=== PATIENT | male | born 1945 | race Caucasian/White ===

== ENCOUNTER 2019-05-22 21:44 | Observation (INO) | payer OTHER ==
[~2019-05-22] VITALS: Ht 167.6 cm; Wt 75.0 kg
[~2019-05-22 21:44] MED LIST: AMLODIPINE PO; ASPI-481 PO; BENAZEPRIL PO; GLIPIZIDE PO
[2019-05-22 21:45] VITALS: Ht 167.6 cm; Wt 75.0 kg
[2019-05-22] MEDS ORDERED: SOD CHLORIDE 0.9% 1,000 ML IV STA (22:14)
[2019-05-22] MEDS ORDERED: ONDANSETRON 4 MG INJ IV STA (22:14)
[2019-05-22] MEDS ORDERED: DEXAMETHASONE 10 MG/ML 1 ML INJ IV ONE (23:00)
[2019-05-22] MEDS ORDERED: LIDOCAINE/MYLANTA 40 ML BTL PO ONE (23:00)
[2019-05-23] VITALS (12 sets, daily range): BP systolic 130–179; BP diastolic 61–95; PULSE 83–101; RESP 15–21; BMI 26.7
[2019-05-23] MEDS ORDERED: ACETAMINOPHEN 325 MG TAB PO PRN (01:00)
[2019-05-23] MEDS ORDERED: ONDANSETRON 4 MG INJ IV PRN ×2 (01:00→02:00)
--- NOTE | 2019-05-23 01:44 | QN ---
Documentation Comment H&P dict a/p 1. retained esophageal foriegn body vs stricture vs ??, swallow study, gi DALE Rey MD May 23, 2019 01:44
[2019-05-23] MEDS ORDERED: morphine 4 MG/ML VIAL IV PRN (02:00)
[2019-05-23] MEDS ORDERED: CLONIDINE 0.2 MG/24 HR PATCH TRANSDERM ONE (02:00)
[2019-05-23] MEDS ORDERED: hydrALAzine 20 MG INJ IV PRN (02:00)
[2019-05-23] MEDS: ACCU-CHEK XX SCH (02:00)
[2019-05-23] MEDS ORDERED: ACETAMINOPHEN 650 MG SUPP PR PRN (02:00)
[2019-05-23] MEDS ORDERED: GLUCAGON 1 MG INJ IM PRN (02:30)
[2019-05-23] MEDS ORDERED: GLUCOSE GEL 15 GRAM TUBE PO PRN ×2 (02:30)
[2019-05-23] MEDS ORDERED: DEXTROSE 50% 50 ML SYRINGE IV PRN ×2 (02:30)
[2019-05-23] MEDS ORDERED: GLUCOSE GEL 15 GRAM TUBE BUCCAL PRN (02:30)
[2019-05-23] MEDS: SOD CHLORIDE 0.9% 1,000 ML IV SCH ×2 (02:41→11:48)
--- NOTE | 2019-05-23 04:35 | ERD ---
ER Documentation Chief Complaint Chief Complaint CHOKING ON CHICKEN; VOMITED; AIRWAY PATENT; A&OX4 HPI 73-year-old male otherwise healthy presenting to the emergency department by family with concerns for choking episode which occurred just prior to arrival. The patient was eating chicken and began to have a coughing spell followed by multiple episodes of nonbloody nonbilious emesis. Since then, he has been unable to swallow food or drinks because he spits it back up. He feels there is chicken stuck in the right side of his throat. He denies any shortness of breath. He tried no medication for relief of symptoms. He reports similar episodes in the past. ROS All systems reviewed and are negative except as per history of present illness. Medications Home Meds Reported Medications [Glipizide] No Conflict Check, PO DAILY 07/22/13 Aspirin (Baby Aspirin) 81 Mg Tab.chew, 81 MG PO DAILY 07/22/13 [Benazepril] No Conflict Check, PO DAILY 07/22/13 [Amlodipine] No Conflict Check, PO DAILY 07/22/13 Allergies Allergies: Coded Allergies: No Known Allergy (Unverified , 02/18/14) PMhx/Soc History of Surgery: Yes Anesthesia Reaction: No Hx Neurological Disorder: No Hx Respiratory Disorders: No Hx Cardiac Disorders: Yes (HTN) Hx Psychiatric Problems: No Hx Miscellaneous Medical Probl: No Hx Alcohol Use: No (per patient he drinks 3 beers per day) Hx Substance Use: Yes (drinks alcohol almost every day, last date used 05/22/19) Hx Tobacco Use: No Smoking Status: Never smoker FmHx Family History: No diabetes Physical Exam Vitals Vital Signs Date Temp Pulse Resp B/P (MAP) Pulse Ox O2 O2 Flow FiO2 Time Delivery Rate 05/23/19 98.5 82 20 157/71 98 Room Air 00:10 (99) 05/22/19 98.7 98 19 185/71 97 21:45 (109) Physical Exam Const: No acute distress Head: Atraumatic Eyes: Normal Conjunctiva ENT: Normal External Ears, Nose and Mouth. No obvious foreign body noted the posterior pharynx. Uvula is midline. Neck: Full range of motion. No meningismus. Resp: Clear to auscultation bilaterally Cardio: Regular rate and rhythm, no murmurs Abd: Soft, non tender, non distended. Normal bowel sounds Skin: No petechiae or rashes Back: No midline or flank tenderness Ext: No cyanosis, or edema Neur: Awake and alert Psych: Normal Mood and Affect Result Diagram: 05/22/19222605/22/192226 Results 24 hrs Laboratory Tests Test 05/22/19 22:27 White Blood Count 8.0 10^3/ul Red Blood Count 4.37 10^6/ul Hemoglobin 14.3 g/dl Hematocrit 39.2 % Mean Corpuscular Volume 89.7 fl Mean Corpuscular Hemoglobin 32.7 pg Mean Corpuscular Hemoglobin Concent 36.5 g/dl Red Cell Distribution Width 11.1 % Platelet Count 180 10^3/UL Mean Platelet Volume 10.2 fl Immature Granulocytes % 0.400 % Neutrophils % 56.8 % Lymphocytes % 35.1 % Monocytes % 6.9 % Eosinophils % 0.4 % Basophils % 0.4 % Nucleated Red Blood Cells % 0.0 /100WBC Immature Granulocytes # 0.030 10^3/ul Neutrophils # 4.5 10^3/ul Lymphocytes # 2.8 10^3/ul Monocytes # 0.6 10^3/ul Eosinophils # 0.0 10^3/ul Basophils # 0.0 10^3/ul Nucleated Red Blood Cells # 0.0 10^3/ul Prothrombin Time 13.4 Sec Prothrombin Time Ratio 1.0 INR International Normalized Ratio 1.01 Activated Partial Thromboplast Time 27.0 Sec Sodium Level 138 mmol/L Potassium Level 3.8 mmol/L Chloride Level 102 mmol/L Carbon Dioxide Level 24 mmol/L Anion Gap 12 Blood Urea Nitrogen 10 mg/dl Creatinine 0.76 mg/dl Est Glomerular Filtrat Rate mL/min mL/min Glucose Level 205 mg/dl Calcium Level 9.3 mg/dl Total Bilirubin 0.8 mg/dl Direct Bilirubin 0.00 mg/dl Indirect Bilirubin 0.8 mg/dl Aspartate Amino Transf (AST/SGOT) 25 IU/L Alanine Aminotransferase (ALT/SGPT) 32 IU/L Alkaline Phosphatase 74 IU/L Total Protein 7.2 g/dl Albumin 4.2 g/dl Globulin 3.00 g/dl Albumin/Globulin Ratio 1.40 Current Medications Medications Dose Sig/Myriam Start Time Status Last (Trade) Ordered Route PRN Stop Time Admin Dose Reason Admin Sodium 1,000 ml @ Q1H STAT 05/22/19 DC 05/22/19 Chloride 1,000 mls/hr IV 22:14 22:33 05/22/19 23:13 Ondansetron 4 mg ONCE STAT 05/22/19 DC 05/22/19 HCl (Zofran IV 22:14 22:33 Inj) 05/22/19 22:18 40 ml ONCE ONCE 05/22/19 DC 05/22/19 Miscellaneous PO 23:00 23:02 Medication 05/22/19 23:01 (Gi Cocktail (2)) 10 mg ONCE ONCE 05/22/19 DC 05/22/19 Dexamethasone IV 23:00 23:02 (Decadron) 05/22/19 23:01 [place] [id number] Radiology Main Line: [phone] DIAGNOSTIC IMAGING REPORT Patient: CONCETTA FLORES : 1945 Age: 73 Sex: M MR #: [id number] DOS: 05/22/19 0000 Ordering MD: ALEXEY RUSSELL PA-C Location: [facility] Room/Bed: PROCEDURE: CT soft tissue neck without contrast CLINICAL INDICATION: Ingested foreign body. The patient feels a chicken bone in throat on the right side TECHNIQUE: A CT of the neck was performed utilizing axial sections from the from the thoracic inlet through the skull base without contrast. Coronal and sagittal images were also reformatted. No intravenous contrast was administered. DICOM images are available. One or more of the following dose reduction techniques were used: Automated exposure control, adjustment of the mA and/or kV according to patient size, use of iterative reconstruction technique. The exam CTDI vol = 9.83 mGy and DLP = 258.65 mGy-cm. COMPARISON: None available FINDINGS: Visualized intracranial structures and skull base: The included portions of the cerebral hemispheres and posterior fossa are unremarkable with the fourth ventricle midline. The mastoid air cells and included paranasal sinuses are clear. Nasopharynx, oropharynx and tongue base: The tonsils are symmetric. The parapharyngeal fat planes are preserved bilaterally. No nasopharyngeal mass is present. The tongue base is unremarkable. Some dental amalgam artifact limits fine evaluation of these regions. Parotid and physical therapy teacher spaces: The glands are normal in size and homogeneous in attenuation without mass or inflammation. The muscles of mastication and temporomandibular joints are normal bilaterally. Carotid spaces: No evidence of mass lesion. The lymph nodes are normal in size bilaterally without evidence of adenopathy. Atherosclerotic calcification of the carotid systems is mild to moderate bilaterally. Submandibular and submental spaces: The glands and lymph nodes are normal. There is no evidence of calcification. The sublingual space is unremarkable. Posterior triangles: Unremarkable bilaterally. Larynx and infraglottic airway: The vallecula, epiglottis, aryepiglottic folds, vocal cords and piriform sinuses are unremarkable. No intrinsic tracheal abnormality is demonstrated. There is no evidence of foreign body Visceral space: The thyroid gland is normal in size. There is no evidence of mass or adenopathy. The cervical esophagus is unremarkable without foreign body. The mid-esophagus within the thorax is mildly distended with gas but shows no evidence of a chicken bone. Supraclavicular fossae: No evidence of adenopathy or mass lesion. Visualized thorax: Slightly dilated middle esophagus with some debris but no evidence of a chicken bone foreign body. Cervical spine: No evidence of fracture, lytic or blastic lesion. Degenerative enthesopathy of the cervical spine is present with probable diffuse idiopathic skeletal hyperostosis of the thoracic spine RPTAT:HJJR IMPRESSION: 1. There is no evidence of radiopaque foreign body, the chicken bone mentioned in the history is not visualized. 2. Mild distension of the visualized esophagus within the thorax below the thoracic inlet with some debris, findings of uncertain significance. 3. Atherosclerotic calcification of the carotid systems. 4. Probable diffuse idiopathic skeletal hyperostosis of the visualized thoracic spine Physician Genie Date Time Electronically viewed and signed by Physician Genie on 05/22/2019 23:28 JR/ CC: ALEXEY RUSSELL PA-C [id number] Procedures/MDM 73-year-old male presents the emergency department with signs and symptoms consistent with esophageal stricture versus esophageal foreign body. Patient failed multiple p.o. challenges in the department and therefore I consulted the attending ED physician, Dr. Alexey Dove who further facilitated admission for this patient for GI consultation and possible upper endoscopy. Patient remained hemodynamically stable under my direct care with no new complaints. Departure Diagnosis: Primary Impression: Esophagus, foreign body Encounter type: initial encounter Qualified Codes: T18.108A - Unspecified foreign body in esophagus causing other injury, initial encounter Condition: ALEXEY Burks PA-C May 23, 2019 04:35
[2019-05-23] MEDS: INSULIN ASPART [NOVOLOG] 3 ML PEN SC SCH ×5 (05:43→20:58)
--- NOTE | 2019-05-23 06:10 | HP ---
DATE OF ADMISSION: 05/23/2019 CHIEF COMPLAINT: Dysphagia. HISTORY OF PRESENT ILLNESS: The patient presents to the emergency room at [facility] with d ysphagia. He states he was in his usual state of health and had some chicken at approximately 9:00 a t night. He then felt as if something got stuck and was unable to swallow. He expectorated much whi kiko material, but did not clear the perceived obstruction. Since that time, he has not been able to take any water. He was seen here in the ER, was able to take some of a GI cocktail, but not wash an y down with any water without having regurgitation. PAST MEDICAL HISTORY: Significant for hypertension. MEDICATIONS: As an outpatient include: 1. Aspirin 81 mg daily. 2. Norvasc. 3. Benazepril. 4. Glipizide. ALLERGIES: NO KNOWN DRUG ALLERGIES. SOCIAL HISTORY: The patient lives at home in [place]. Works as a cook. Denies tobacco or i llicit drug use. Occasional alcohol. FAMILY HISTORY: Noncontributory. REVIEW OF SYSTEMS: Five systems reviewed and found not to be revealing. PHYSICAL EXAMINATION: VITAL SIGNS: Blood pressure is 157/71, pulse rate 82, respirations 20, temperature is 98.5. GENERAL: A pleasant man in no acute distress. Alert and oriented x3. HEENT: Normocephalic, atraumatic without evident scleral icterus, perioral cyanosis. Mucous membran es are moist. NECK: Soft and supple without masses. No evidence of jugular venous distention or carotid bruits. CHEST: Clear to auscultation and percussion bilaterally. HEART: Regular rate and rhythm, S1-S2, no added sounds. ABDOMEN: Soft, nontender, nondistended without palpable hepatosplenomegaly. EXTREMITIES: Without clubbing, cyanosis or edema. SKIN: Without rashes. NEUROLOGIC: Grossly intact. LABORATORY STUDIES: Reveal hemoglobin 14.3 g/dL, white count of 8000, platelets of 180,000. INR is 1.0. Sodium 138, potassium 3.8, chloride 102, bicarbonate 24, BUN 10, creatinine 0.76, glucose 205. Liver function tests are unremarkable. CT scan of the neck was performed, which reveals mild distention of the visualized esophagus below th e thoracic inlet of uncertain significance. ASSESSMENT AND PLAN: 1. Gastrointestinal. Possible esophageal retained foreign body. Consider also stricture or spasm a chalasia. We will plan to obtain GI consultation. 2. Send for video swallow study. 3. Consider EGD. 4. Continue n.p.o. at this time. Dictated By: DALE CHENG MD RER/NTS Conf#: [id number] DID#: [id number]
--- NOTE | 2019-05-23 10:12 | CONS ---
Assessment/Plan Assessment/Plan Hospital Course (Demo Recall) Summary Assessment and Plan: Assessment: Dysphagia -Foreign body versus stricture versus dysmotility -CT soft tissue neck without contrast shows no evidence of radial opaque foreign body, the chicken bone mentioned in the history is not visualized. Mild distention of the visualized esophagus within the thorax below the thorax inlet with some debris findings of uncertain significance Hypertension Diabetes mellitus Plan: Urgent EGD today Endoscopy - risks/benefits/alternatives/indications of procedure and sedation/anesthesia discussed with patient who states understanding and gives informed consent to proceed. Cancel video swallow for now Patient seen in collaboration with Dr. Magdaleno CC: NOBLE MAGDALENO MD ; Consultation Date/Type/Reason Admit Date/Time May 23, 2019 at 00:56 Date of Consultation: May 23, 2019 Type of Consult GI Reason for Consultation Dysphagia Date/Time of Note DATE: 05/23/19 TIME: 09:52 Hx of Present Illness This is a 73-year-old male with PMH of DM, HTN who presented to the emergency department earlier this morning complains of dysphagia after eating chicken last night. Barely the patient was eating chicken about 9:00 PM yesterday he began to cough and have episodes of emesis he was able to get some chicken up but does not all of it and continues to complain of dysphasia unable to swallow food or drinks. Scented to the ED for further evaluation. Patient states he has had symptoms of dysphagia for the past 10 years usually occurs about once per week worse with solids versus liquids. He has never had an upper endoscopy. Review of Systems: A 12 system, review was conducted and is negative except as noted in the HPI or here. Past Medical History Home Meds Reported Medications [Glipizide] No Conflict Check, PO DAILY 07/22/13 Aspirin (Baby Aspirin) 81 Mg Tab.chew, 81 MG PO DAILY 07/22/13 [Benazepril] No Conflict Check, PO DAILY 07/22/13 [Amlodipine] No Conflict Check, PO DAILY 07/22/13 Medications Current Medications Ondansetron HCl (Zofran Inj) 4 mg BRIDGE ORDER PRN IV NAUSEA/VOMITING Last administered on 05/23/19at 08:18; Admin Dose 4 MG; Start 05/23/19 at 01:00; Stop 05/24/19 at 00:59 Acetaminophen (Tylenol Tab) 650 mg ER BRIDGE PRN PO .MILD PAIN 1-3 OR TEMP; Start 05/23/19 at 01:00; Stop 05/24/19 at 00:59 Sodium Chloride 1,000 ml @ 100 mls/hr Q10H IV Last administered on 05/23/19at 02:41; Admin Dose 100 MLS/HR; Start 05/23/19 at 02:00 Hydralazine HCl (Apresoline) 10 mg Q4H PRN IV sbp>160 Last administered on 05/23/19at 08:19; Admin Dose 10 MG; Start 05/23/19 at 02:00 Acetaminophen (Tylenol Supp) 650 mg Q4H PRN NE pain/fever; Start 05/23/19 at 02:00 Morphine Sulfate (morphine) 4 mg Q4H PRN IV pain; Start 05/23/19 at 02:00 Ondansetron HCl (Zofran Inj) 4 mg Q4H PRN IV nausea; Start 05/23/19 at 02:00 Diagnostic Test (Pha) (Accu-Chek) 1 ea 02 XX ; Start 05/23/19 at 02:00 Insulin Aspart (Novolog Insulin Pen) NOVOLOG *MODERATE* ALGORI... Q4 SC Last administered on 05/23/19at 08:17; Admin Dose 4 UNIT; Start 05/23/19 at 05:00 Miscellaneous Information 1 ea NOTE XX ; Start 05/23/19 at 02:30 Glucose (Glutose) 15 gm Q15M PRN PO DECREASED GLUCOSE; Start 05/23/19 at 02:30 Glucose (Glutose) 22.5 gm Q15M PRN PO DECREASED GLUCOSE; Start 05/23/19 at 02:30 Dextrose (D50w Syringe) 25 ml Q15M PRN IV DECREASED GLUCOSE; Start 05/23/19 at 02:30 Dextrose (D50w Syringe) 50 ml Q15M PRN IV DECREASED GLUCOSE; Start 05/23/19 at 02:30 Glucagon (Glucagen) 1 mg Q15M PRN IM DECREASED GLUCOSE; Start 05/23/19 at 02:30 Glucose (Glutose) 15 gm Q15M PRN BUCCAL DECREASED GLUCOSE; Start 05/23/19 at 02:30 Allergies: Coded Allergies: No Known Allergy (Unverified , 02/18/14) Social History Smoking Status: Never smoker Exam/Review of Systems Exam Vitals Vital Signs Date Temp Pulse Resp B/P (MAP) Pulse Ox O2 O2 Flow FiO2 Time Delivery Rate 05/23/19 91 18 179/82 Room Air 08:06 (114) 05/23/19 98.1 97 07:30 Intake and Output 05/22/19 05/22/19 05/23/19 1414:59 22:59 06:59 IntakeIntake Total 200 ml BalanceBalance 200 ml Exam PHYSICAL EXAMINATION: GENERAL: Well developed, well nourished, alert & oriented x 3, in no acute distress SKIN: No lesions HEAD: Normocephalic, atraumatic, no tenderness. EYES: Pupils equal reactive to light and accommodation, no discharge. EARS/NOSE AND THROAT: Ears normal, nose normal. NECK: Supple, no masses, CHEST: Inspection within normal limits. CARDIOVASCULAR: Heart: Regular rate and rhythm RESPIRATORY: Lungs clear to auscultation GASTROINTESTINAL AND LIVER: Abdomen: Soft, non tenderness, non-distended, no hernias, no masses, no organomegaly, no ascites, no guarding, no rebound tenderness, normoactive bowel sounds. Rectal: Deferred. EXTREMITIES: No cyanosis, clubbing or edema. Results Result Diagram: 05/22/19222605/22/192226 Results 24hrs Laboratory Tests Test 05/22/19 22:27 05/23/19 05:29 05/23/19 08:10 White Blood Count 8.0 Red Blood Count 4.37 L Hemoglobin 14.3 Hematocrit 39.2 L Mean Corpuscular Volume 89.7 Mean Corpuscular Hemoglobin 32.7 Mean Corpuscular Hemoglobin Concent 36.5 Red Cell Distribution Width 11.1 L Platelet Count 180 Mean Platelet Volume 10.2 Immature Granulocytes % 0.400 Neutrophils % 56.8 Lymphocytes % 35.1 Monocytes % 6.9 Eosinophils % 0.4 Basophils % 0.4 Nucleated Red Blood Cells % 0.0 Immature Granulocytes # 0.030 Neutrophils # 4.5 Lymphocytes # 2.8 Monocytes # 0.6 Eosinophils # 0.0 Basophils # 0.0 Nucleated Red Blood Cells # 0.0 Prothrombin Time 13.4 Prothrombin Time Ratio 1.0 INR International Normalized Ratio 1.01 Activated Partial Thromboplast Time 27.0 Sodium Level 138 Potassium Level 3.8 Chloride Level 102 Carbon Dioxide Level 24 Anion Gap 12 Blood Urea Nitrogen 10 Creatinine 0.76 Est Glomerular Filtrat Rate mL/min Glucose Level 205 Calcium Level 9.3 Total Bilirubin 0.8 Direct Bilirubin 0.00 Indirect Bilirubin 0.8 Aspartate Amino Transf (AST/SGOT) 25 Alanine Aminotransferase (ALT/SGPT) 32 Alkaline Phosphatase 74 Total Protein 7.2 Albumin 4.2 Globulin 3.00 Albumin/Globulin Ratio 1.40 Bedside Glucose 214 204 Medications Medication Current Medications Ondansetron HCl (Zofran Inj) 4 mg BRIDGE ORDER PRN IV NAUSEA/VOMITING Last administered on 05/23/19at 08:18; Admin Dose 4 MG; Start 05/23/19 at 01:00; Stop 05/24/19 at 00:59 Acetaminophen (Tylenol Tab) 650 mg ER BRIDGE PRN PO .MILD PAIN 1-3 OR TEMP; Start 05/23/19 at 01:00; Stop 05/24/19 at 00:59 Sodium Chloride 1,000 ml @ 100 mls/hr Q10H IV Last administered on 05/23/19at 02:41; Admin Dose 100 MLS/HR; Start 05/23/19 at 02:00 Hydralazine HCl (Apresoline) 10 mg Q4H PRN IV sbp>160 Last administered on 05/23/19at 08:19; Admin Dose 10 MG; Start 05/23/19 at 02:00 Acetaminophen (Tylenol Supp) 650 mg Q4H PRN NE pain/fever; Start 05/23/19 at 02:00 Morphine Sulfate (morphine) 4 mg Q4H PRN IV pain; Start 05/23/19 at 02:00 Ondansetron HCl (Zofran Inj) 4 mg Q4H PRN IV nausea; Start 05/23/19 at 02:00 Diagnostic Test (Pha) (Accu-Chek) 1 ea 02 XX ; Start 05/23/19 at 02:00 Insulin Aspart (Novolog Insulin Pen) NOVOLOG *MODERATE* ALGORI... Q4 SC Last administered on 05/23/19at 08:17; Admin Dose 4 UNIT; Start 05/23/19 at 05:00 Miscellaneous Information 1 ea NOTE XX ; Start 05/23/19 at 02:30 Glucose (Glutose) 15 gm Q15M PRN PO DECREASED GLUCOSE; Start 05/23/19 at 02:30 Glucose (Glutose) 22.5 gm Q15M PRN PO DECREASED GLUCOSE; Start 05/23/19 at 02:30 Dextrose (D50w Syringe) 25 ml Q15M PRN IV DECREASED GLUCOSE; Start 05/23/19 at 02:30 Dextrose (D50w Syringe) 50 ml Q15M PRN IV DECREASED GLUCOSE; Start 05/23/19 at 02:30 Glucagon (Glucagen) 1 mg Q15M PRN IM DECREASED GLUCOSE; Start 05/23/19 at 02:30 Glucose (Glutose) 15 gm Q15M PRN BUCCAL DECREASED GLUCOSE; Start 05/23/19 at 02:30 ANA COX May 23, 2019 10:11
--- NOTE | 2019-05-23 10:20 | PDOCDIS ---
Discharge Instructions CONDITION [id number] Patient Condition: [id number] Good HOME CARE INSTRUCTIONS: [id number] Diet Instructions: [id number] Activity Restrictions: [id number] No Restrictions FOLLOW UP/APPOINTMENTS Follow-up Plan pcp 1 week SAUL MOY MD May 23, 2019 10:20
--- NOTE | 2019-05-23 11:47 | PREAC ---
Date/Time of Note Date/Time of Note DATE: 05/23/19 TIME: 11:46 Anesthesia Eval and Record Evaluation Time Pre-Procedure Interview DATE: 05/23/19 TIME: 11:46 Age 73 Sex male NPO: 8 hrs Preoperative diagnosis dysphagia Planned procedure EGD possible biopsy Past Medical History Past Medical History: Includes Cardio: HTN, Dyslipidemia Endo: Diabetes Surgery & Anesthesia Issues No known issue Meds Anticoagulation: No Beta Errol within 24 hr: No Reason Beta Errol not given: Pt. not on B-Errol Reported Medications [Glipizide] No Conflict Check, PO DAILY 07/22/13 Aspirin (Baby Aspirin) 81 Mg Tab.chew, 81 MG PO DAILY 07/22/13 [Benazepril] No Conflict Check, PO DAILY 07/22/13 [Amlodipine] No Conflict Check, PO DAILY 07/22/13 Current Medications Ondansetron HCl (Zofran Inj) 4 mg BRIDGE ORDER PRN IV NAUSEA/VOMITING Last administered on 05/23/19at 08:18; Admin Dose 4 MG; Start 05/23/19 at 01:00; Stop 05/24/19 at 00:59 Acetaminophen (Tylenol Tab) 650 mg ER BRIDGE PRN PO .MILD PAIN 1-3 OR TEMP; Start 05/23/19 at 01:00; Stop 05/24/19 at 00:59 Sodium Chloride 1,000 ml @ 100 mls/hr Q10H IV Last administered on 05/23/19at 02:41; Admin Dose 100 MLS/HR; Start 05/23/19 at 02:00 Hydralazine HCl (Apresoline) 10 mg Q4H PRN IV sbp>160 Last administered on 05/23/19at 08:19; Admin Dose 10 MG; Start 05/23/19 at 02:00 Acetaminophen (Tylenol Supp) 650 mg Q4H PRN RI pain/fever; Start 05/23/19 at 02:00 Morphine Sulfate (morphine) 4 mg Q4H PRN IV pain; Start 05/23/19 at 02:00 Ondansetron HCl (Zofran Inj) 4 mg Q4H PRN IV nausea; Start 05/23/19 at 02:00 Diagnostic Test (Pha) (Accu-Chek) 1 ea 02 XX ; Start 05/23/19 at 02:00 Insulin Aspart (Novolog Insulin Pen) NOVOLOG *MODERATE* ALGORI... Q4 SC Last administered on 05/23/19at 08:17; Admin Dose 4 UNIT; Start 05/23/19 at 05:00 Miscellaneous Information 1 ea NOTE XX ; Start 05/23/19 at 02:30 Glucose (Glutose) 15 gm Q15M PRN PO DECREASED GLUCOSE; Start 05/23/19 at 02:30 Glucose (Glutose) 22.5 gm Q15M PRN PO DECREASED GLUCOSE; Start 05/23/19 at 02:30 Dextrose (D50w Syringe) 25 ml Q15M PRN IV DECREASED GLUCOSE; Start 05/23/19 at 02:30 Dextrose (D50w Syringe) 50 ml Q15M PRN IV DECREASED GLUCOSE; Start 05/23/19 at 02:30 Glucagon (Glucagen) 1 mg Q15M PRN IM DECREASED GLUCOSE; Start 05/23/19 at 02:30 Glucose (Glutose) 15 gm Q15M PRN BUCCAL DECREASED GLUCOSE; Start 05/23/19 at 02:30 Meds reviewed: Yes Allergies Coded Allergies: No Known Allergy (Unverified , 02/18/14) Allergies Reviewed: Yes Labs/Studies Labs Reviewed: Reviewed by anesthesiologist Result Diagram: 05/22/19222605/22/192226 Laboratory Tests 05/22/19 22:27 test: N/A Pre-procedure Exam Last vitals Vital Signs Date Temp Pulse Resp B/P (MAP) Pulse Ox O2 O2 Flow FiO2 Time Delivery Rate 05/23/19 99 158/79 10:37 (105) 05/23/19 18 Room Air 08:06 05/23/19 98.1 97 07:30 Airway: Adequate mouth opening, Adequate thyromental dist Mallampati: Mallampati II Teeth: Normal Lung: Normal Heart: Normal ASA Physical Status ASA physical status: 3 Emergency: None Planned Anesthetic General/MAC: MAC Planned Pain Management Parenteral pain med, Local by surgeon Pre-operative Attestations Prior to commencing anesthesia and surgery, the patient was re-evaluated, there was verification of: *The patient's identity *The results of appropriate recent lab work and preoperative vital signs *The above evaluation not changing prior to induction *Anesthetic plan, risk benefits, alternative and complications discussed with patient/family; questions answered; patient/family understands, accepts and wishes to proceed. SHREYA OSMAN May 23, 2019 11:47
--- NOTE | 2019-05-23 13:14 | PREAC ---
Date/Time of Note Date/Time of Note DATE: 05/23/19 TIME: 13:13 Anesthesia Eval and Record Evaluation Time Pre-Procedure Interview DATE: 05/23/19 TIME: 13:13 Age 73 Sex male NPO: 8 hrs Preoperative diagnosis dysphagia Planned procedure EGD Past Medical History Past Medical History: Includes Cardio: HTN Endo: Diabetes Surgery & Anesthesia Issues No known issue Meds Anticoagulation: No Beta Errol within 24 hr: No Reason Beta Errol not given: Pt. not on B-Errol Reported Medications [Glipizide] No Conflict Check, PO DAILY 07/22/13 Aspirin (Baby Aspirin) 81 Mg Tab.chew, 81 MG PO DAILY 07/22/13 [Benazepril] No Conflict Check, PO DAILY 07/22/13 [Amlodipine] No Conflict Check, PO DAILY 07/22/13 Current Medications Ondansetron HCl (Zofran Inj) 4 mg BRIDGE ORDER PRN IV NAUSEA/VOMITING Last administered on 05/23/19at 08:18; Admin Dose 4 MG; Start 05/23/19 at 01:00; Stop 05/24/19 at 00:59 Acetaminophen (Tylenol Tab) 650 mg ER BRIDGE PRN PO .MILD PAIN 1-3 OR TEMP; Start 05/23/19 at 01:00; Stop 05/24/19 at 00:59 Sodium Chloride 1,000 ml @ 100 mls/hr Q10H IV Last administered on 05/23/19at 11:48; Admin Dose 100 MLS/HR; Start 05/23/19 at 02:00 Hydralazine HCl (Apresoline) 10 mg Q4H PRN IV sbp>160 Last administered on 05/23/19at 08:19; Admin Dose 10 MG; Start 05/23/19 at 02:00 Acetaminophen (Tylenol Supp) 650 mg Q4H PRN [place] pain/fever; Start 05/23/19 at 02:00 Morphine Sulfate (morphine) 4 mg Q4H PRN IV pain; Start 05/23/19 at 02:00 Ondansetron HCl (Zofran Inj) 4 mg Q4H PRN IV nausea; Start 05/23/19 at 02:00 Diagnostic Test (Pha) (Accu-Chek) 1 ea 02 XX ; Start 05/23/19 at 02:00 Insulin Aspart (Novolog Insulin Pen) NOVOLOG *MODERATE* ALGORI... Q4 SC Last administered on 05/23/19at 08:17; Admin Dose 4 UNIT; Start 05/23/19 at 05:00 Miscellaneous Information 1 ea NOTE XX ; Start 05/23/19 at 02:30 Glucose (Glutose) 15 gm Q15M PRN PO DECREASED GLUCOSE; Start 05/23/19 at 02:30 Glucose (Glutose) 22.5 gm Q15M PRN PO DECREASED GLUCOSE; Start 05/23/19 at 02:30 Dextrose (D50w Syringe) 25 ml Q15M PRN IV DECREASED GLUCOSE; Start 05/23/19 at 02:30 Dextrose (D50w Syringe) 50 ml Q15M PRN IV DECREASED GLUCOSE; Start 05/23/19 at 02:30 Glucagon (Glucagen) 1 mg Q15M PRN IM DECREASED GLUCOSE; Start 05/23/19 at 02:30 Glucose (Glutose) 15 gm Q15M PRN BUCCAL DECREASED GLUCOSE; Start 05/23/19 at 02:30 Meds reviewed: Yes Allergies Coded Allergies: No Known Allergy (Unverified , 02/18/14) Allergies Reviewed: Yes Labs/Studies Labs Reviewed: Reviewed by anesthesiologist Result Diagram: 05/22/19222605/22/192226 Laboratory Tests 05/22/19 22:27 test: N/A Pre-procedure Exam Last vitals Vital Signs Date Temp Pulse Resp B/P (MAP) Pulse Ox O2 O2 Flow FiO2 Time Delivery Rate 05/23/19 99 158/79 10:37 (105) 05/23/19 18 Room Air 08:06 05/23/19 98.1 97 07:30 Airway: Adequate mouth opening, Adequate thyromental dist Mallampati: Mallampati II Teeth: Normal Lung: Normal Heart: Normal ASA Physical Status ASA physical status: 2 Emergency: None Pre-operative Attestations Prior to commencing anesthesia and surgery, the patient was re-evaluated, there was verification of: *The patient's identity *The results of appropriate recent lab work and preoperative vital signs *The above evaluation not changing prior to induction *Anesthetic plan, risk benefits, alternative and complications discussed with patient/family; questions answered; patient/family understands, accepts and wishes to proceed. ALYSE CARO DO May 23, 2019 13:14
[2019-05-23] MEDS ORDERED: LIDOCAINE 4% SOLUTION 50 ML BTL ONE (13:16)
[2019-05-23] MEDS ORDERED: LIDOCAINE 2% (SDV) 5 ML INJ ONE (13:16)
[2019-05-23] MEDS ORDERED: MIDAZOLAM 1 MG/ML 2 ML INJ ONE (13:17)
--- NOTE | 2019-05-23 13:54 | PAC ---
Date/Time of Note Date/Time of Note DATE: 05/23/19 TIME: 13:53 Post-Anesthesia Notes Post-Anesthesia Note Last documented vital signs Vital Signs Date Temp Pulse Resp B/P (MAP) Pulse Ox O2 O2 Flow FiO2 Time Delivery Rate 05/23/19 98 70 129/76 99 1350 05/23/19 18 Room Air 08:06 05/23/19 98.1 97 07:30 Activity: WNL Respiratory function: WNL Cardiovascular function: WNL Mental status: Baseline Pain reasonably controlled: Yes Hydration appropriate: Yes Nausea/Vomiting absent: Yes ALYSE CARO DO May 23, 2019 13:54
[2019-05-23] MEDS ORDERED: PROPOFOL 200 MG INJ ONE (13:55)
[2019-05-23] MEDS ORDERED: METOCLOPRAMIDE 10 MG INJ IV SCH (14:00)
[2019-05-23] MEDS: PANTOPRAZOLE (EC) 40 MG TAB PO SCH (17:46)
[2019-05-23] MEDS: METOCLOPRAMIDE 10 MG INJ IV SCH (20:54)
[2019-05-24] MEDS: SOD CHLORIDE 0.9% 1,000 ML IV SCH ×2 (00:30→08:00)
[2019-05-24] MEDS: ACCU-CHEK XX SCH (02:00)
[2019-05-24 02:04] VITALS: BP 139/63; PULSE 68; RESP 19
[2019-05-24] MEDS: INSULIN ASPART [NOVOLOG] 3 ML PEN SC SCH ×4 (02:48→12:50)
[2019-05-24] MEDS: METOCLOPRAMIDE 10 MG INJ IV SCH ×2 (02:52→09:14)
[2019-05-24] MEDS: PANTOPRAZOLE (EC) 40 MG TAB PO SCH (05:30)
[2019-05-24 07:26] VITALS: BP 139/67; PULSE 66; RESP 20
--- NOTE | 2019-05-24 10:51 | PN ---
Date/Time of Note Date/Time of Note DATE: 05/24/19 TIME: 10:48 Assessment/Plan VTE Prophylaxis Risk score (from Nsg)>0 risk: 2 SCD applied (from Ns): No SCD contraindicated: low risk/ambulating Pharmacological prophylaxis: heparin Lines/Catheters IV Catheter Type (from Nrsg): Peripheral IV Urinary Cath still in place: No Assessment/Plan Assessment/Plan Assessment: Dysphagia -Foreign body versus stricture versus dysmotility -CT soft tissue neck without contrast shows no evidence of radial opaque foreign body, the chicken bone mentioned in the history is not visualized. 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 Magdaleno Subjective: Patient is doing well. He denies abdominal pain, nausea or vomiting. He is tolerating diet well. Results of EGD discussed with the patient. Patient verbalized understanding. From GI standpoint patient is adequate for outpatient management. PHYSICAL EXAMINATION: GENERAL: Well developed, well nourished, alert & oriented x 3, in no acute distress SKIN: No lesions, no stigmata chronic liver disease, no evidence of bleeding diathesis LYMPHATIC: No palpable lymphadenopathy. HEAD: Normocephalic, atraumatic, no tenderness. EYES: Pupils equal reactive to light and accommodation, full extraocular movements, sclera clear, non-icteric, no discharge. EARS/NOSE AND THROAT: Ears normal, nose normal, oropharynx normal, oral membranes well hydrated without lesions. NECK: Supple, no masses, thyroid normal, JVP within normal limits, carotids normal without bruits. CHEST: Inspection within normal limits. CARDIOVASCULAR: Heart: Regular rate and rhythm, no murmurs, gallops or rubs. Peripheral pulses present within normal limits, no cyanosis, clubbing or edemas. No pulsatile abdominal mass RESPIRATORY: Lungs clear to auscultation and percussion, no wheezing, no rubs GASTROINTESTINAL AND LIVER: Abdomen: Soft, non tenderness, non-distended, no hernias, no masses, no organomegaly, no ascites, no guarding, no rebound tenderness, normoactive bowel sounds. Rectal: Deferred. GENITOURINARY: [Male genitalia within normal limits. EXTREMITIES: No cyanosis, clubbing or edema. Result Diagram: 05/22/19222605/22/192226 Results 24hrs Laboratory Tests Test 05/23/19 14:11 05/23/19 17:47 05/23/19 20:55 05/24/19 02:47 Bedside Glucose 141 124 217 122 Test 05/24/19 05:31 05/24/19 09:03 Bedside Glucose 114 179 CC: NOBLE MAGDALENO MD ; Exam/Review of Systems Exam Vitals Vital Signs Date Temp Pulse Resp B/P (MAP) Pulse Ox O2 O2 Flow FiO2 Time Delivery Rate 05/24/19 98.2 66 20 139/67 96 07:26 (91) 05/23/19 Room Air 14:00 Intake and Output 05/23/19 05/23/19 05/24/19 1515:00 23:00 07:00 IntakeIntake Total 900 ml 1020 ml 1200 ml BalanceBalance 900 ml 1020 ml 1200 ml Results Results 24hrs Laboratory Tests Test 05/23/19 14:11 05/23/19 17:47 05/23/19 20:55 05/24/19 02:47 Bedside Glucose 141 124 217 122 Test 05/24/19 05:31 05/24/19 09:03 Bedside Glucose 114 179 Medications Medication Current Medications Sodium Chloride 1,000 ml @ 100 mls/hr Q10H IV Last administered on 05/24/19at 00:30; Admin Dose 100 MLS/HR; Start 05/23/19 at 02:00 Hydralazine HCl (Apresoline) 10 mg Q4H PRN IV sbp>160 Last administered on 05/23/19at 08:19; Admin Dose 10 MG; Start 05/23/19 at 02:00 Acetaminophen (Tylenol Supp) 650 mg Q4H PRN [place] pain/fever; Start 05/23/19 at 02:00 Morphine Sulfate (morphine) 4 mg Q4H PRN IV pain; Start 05/23/19 at 02:00 Ondansetron HCl (Zofran Inj) 4 mg Q4H PRN IV nausea; Start 05/23/19 at 02:00 Diagnostic Test (Pha) (Accu-Chek) 1 ea 02 XX ; Start 05/23/19 at 02:00 Insulin Aspart (Novolog Insulin Pen) NOVOLOG *MODERATE* ALGORI... Q4 SC Last administered on 05/24/19at 09:06; Admin Dose 2 UNIT; Start 05/23/19 at 05:00 Miscellaneous Information 1 ea NOTE XX ; Start 05/23/19 at 02:30 Glucose (Glutose) 15 gm Q15M PRN PO DECREASED GLUCOSE; Start 05/23/19 at 02:30 Glucose (Glutose) 22.5 gm Q15M PRN PO DECREASED GLUCOSE; Start 05/23/19 at 02:30 Dextrose (D50w Syringe) 25 ml Q15M PRN IV DECREASED GLUCOSE; Start 05/23/19 at 02:30 Dextrose (D50w Syringe) 50 ml Q15M PRN IV DECREASED GLUCOSE; Start 05/23/19 at 02:30 Glucagon (Glucagen) 1 mg Q15M PRN IM DECREASED GLUCOSE; Start 05/23/19 at 02:30 Glucose (Glutose) 15 gm Q15M PRN BUCCAL DECREASED GLUCOSE; Start 05/23/19 at 02:30 Pantoprazole (Protonix Tab) 40 mg BID@06,18 PO Last administered on 05/24/19at 05:30; Admin Dose 40 MG; Start 05/23/19 at 18:00 Metoclopramide HCl (Reglan) 10 mg Q6H IV Last administered on 05/24/19at 09:14; Admin Dose 10 MG; Start 05/23/19 at 20:30 YOVANA NAILS NP May 24, 2019 10:51
[2019-05-24] MEDS ORDERED: PANT40TA4 PO (12:13)
[2019-05-24] MEDS ORDERED: METO10TA3 PO (12:15)
--- NOTE | 2019-05-25 01:57 | DS ---
DATE OF ADMISSION: 05/23/2019 DATE OF DISCHARGE: 05/24/2019 DISCHARGE DIAGNOSES: 1. A 73-year-old male with dysphagia. 2. Status post EGD. 3. Gastroesophageal reflux disease. 4. Hypertension. 5. Type 2 diabetes mellitus. PROCEDURES DURING HOSPITALIZATION: 1. A CAT scan of the soft tissue neck without contrast. 2. EGD. HOSPITAL COURSE: A 73-year-old male presented to emergency room with complaint of difficulty swallow ing. He believes that a piece of chicken was stuck in his throat, which led to vomiting. A CAT scan of the soft tissue of the neck without contrast showed no evidence of a radiopaque foreign body. The patient was seen in consultation by Dr. Magdaleno and underwent EGD. He was found to have gastroeso phageal reflux disease. There was retained material in the esophagus. 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 There was severe distal esophagitis. A biopsy was obtained. The patient is now tolerating oral intake. He is in a stable condition for discharge. The recommend ation was to keep patient on the Protonix twice daily as well as Reglan. The endoscopy will be repea bruce in 8 weeks. They also suggested esophageal manometry as an outpatient. MEDICATIONS ON DISCHARGE: 1. Reglan 10 mg q.i.d. 2. Protonix 40 mg p.o. b.i.d. 3. Amlodipine daily. 4. Aspirin daily. 5. Benazepril daily. 6. Glipizide daily. DISCHARGE FOLLOWUP: 1. Follow up with PCP in 1 week. 2. Follow up with Dr. Magdaleno. Call for appointment. Dictated By: SAUL REEDER/HUMAIRA Conf#: [id number] DID#: [id number] CC: NOBLE MAGDALENO; DALE CHENG MD;*[facility]*
== END 2019-05-24 14:10 | disposition home or self-care (01) ==
LOC: FTE 21:44 → 2NE 05-23 00:56
PROVIDERS: ADMIT Legal Medicine; ATTEND Legal Medicine
DX: R13.10 Dysphagia, unspecified (principal); K21.0 Gastro-esophageal reflux disease with esophagitis; I10 Essential (primary) hypertension; E11.9 Type 2 diabetes mellitus without complications; Z79.82 Long term (current) use of aspirin
CPT/HCPCS: 36415; 43239; 70490; 80053; 82962; 85025; 85610; 85730; 88305; 88313; 96374; 96375; 99285; G0378; J0360; J1100; J1815; J2250; J2405; J2765; J7030